=== PATIENT | male | born 1995 | race Caucasian/White ===

== ENCOUNTER 2020-02-19 08:34 | Emergency (ER) | payer SELFPAY ==
[~2020-02-19] VITALS: Ht 182.9 cm; Wt 69.0 kg
--- NOTE | 2020-02-19 08:49 | NUR ---
INITIAL PT CONTACT. PT PRESENTS TO ED C/O LOWER BACK PAIN. PT STATES IT IS CHRONIC AND HAS PROGRESSIVELY GOTTEN WORSE. "IT IS KEEPING ME AWAKE AT NIGHT AND I CANT CONTINUE TO DO MY VERY PHYSICAL JOB". PT SITTING UPRIGHT ON ADINA, KRISSY, VSS. NO NEEDS AT THIS TIME. CALL LIGHT WITHIN REACH.
[2020-02-19] MEDS ORDERED: IBUPROFEN 600 MG TABLET ONE (08:59)
[2020-02-19] MEDS ORDERED: IBUPROFEN 600 MG TABLET PO ONE (09:00)
[2020-02-19 09:35] VITALS: BP 108/64
--- NOTE | 2020-02-19 09:35 | NUR ---
Patient given discharge instructions and they have confirmed that they understand the instructions. Patient ambulatory with steady gait.
== END 2020-02-19 09:37 | disposition home or self-care (01) ==
LOC: ED 09:04
DX: G89.29 Other chronic pain (principal); M54.5 Low back pain; Z87.891 Personal history of nicotine dependence
CPT/HCPCS: 72110; 99283